=== PATIENT | female | born 1995 | race Two or more races ===

== ENCOUNTER 2022-11-28 16:43 | Emergency (ER) | payer OTHER ==
[~2022-11-28] VITALS: Ht 154.9 cm; Wt 55.3 kg
[2022-11-28] MEDS ORDERED: PRENATAL + DHA1 EAC1 PO (16:59)
[2022-11-28 19:52] LABS: HEMATOCRIT 39.5 % (36.0-45.00); MEAN CELL VOLUME 86.8 fL (80.00-100.00); MEAN CORPUSCULAR HEMOGLOBIN 30.7 pg (27.00-32.0); MEAN CORPUSCULAR HGB CONC 35.4 g/dl (32.0-36.0); PLATELET COUNT 227 K/uL (150-450); RED BLOOD COUNT 4.55 M/uL (4.00-6.00); RED CELL DISTRIBUTION WIDTH 13.2 % (11.5-14.5)
[2022-11-28 20:41] LABS: CALCIUM 9.3 mg/dL (8.5-10.1); CREATININE SERUM 0.56 mg/dL (0.55-1.02); GFR 130.86; POTASSIUM 4.23 mEq/L (3.5-5.1)
== END 2022-11-28 23:32 | disposition home or self-care (01) ==
LOC: ER 16:43
PROVIDERS: Emergency Medicine
DX: O26.891 Other specified pregnancy related conditions, first trimester (principal); Z3A.10 10 weeks gestation of pregnancy; R30.0 Dysuria; R10.2 Pelvic and perineal pain; Z91.013 Allergy to seafood